=== PATIENT | female | born 1985 | race Caucasian/White ===

== ENCOUNTER 2016-09-05 19:28 | Emergency (ER) | payer OTHER ==
[~2016-09-05] VITALS: Ht 157.5 cm; Wt 85.5 kg
[2016-09-05] MEDS ORDERED: SODIUM CHLORIDE 0.9% 1,000ML IVBOLUS ONE (20:00)
[2016-09-05] MEDS ORDERED: ONDANSETRON 2MG/ML, 2ML IVPush ONE ×2 (20:00→21:00)
[2016-09-05] MEDS ORDERED: MAALOX/HYOSCYAMINE/LIDOCAINE 45 ML BOTTLE PO ONE (20:00)
[2016-09-05] MEDS ORDERED: SODIUM CHLORIDE FLUSH 10ML SYR IVF ONE (20:00)
[2016-09-05] MEDS ORDERED: ONDANSETRON 2MG/ML, 2ML ONE ×2 (20:18→21:18)
[2016-09-05] MEDS ORDERED: MAALOX/HYOSCYAMINE/LIDOCAINE 45 ML BOTTLE ONE (20:18)
[2016-09-05] MEDS ORDERED: SUMA25TA3 PO (20:30)
[2016-09-05] MEDS ORDERED: TOPI25CA5 PO (20:30)
[2016-09-05 20:40] LABS: ASPARTATE AMINO TRANSFERASE 18 U/L (15-37); BLOOD UREA NITROGEN 8 mg/dL (7-18)
[2016-09-05 22:02] VITALS: BP 130/74
== END 2016-09-05 22:04 | disposition home or self-care (01) ==
LOC: ED 21:08
DX: K52.9 Noninfective gastroenteritis and colitis, unspecified (principal)
CPT/HCPCS: 36415; 80053; 81001; 83690; 84703; 85025; 96361; 96374; 96376; 99284; J2405; J7030

== ENCOUNTER 2017-05-28 19:59 | Inpatient (IN) | payer OTHER ==
[~2017-05-28] VITALS: Ht 157.5 cm; Wt 76.9 kg
[~2017-05-28 19:59] MED LIST: SUMA25TA3 PO; TOPI25CA5 PO
[2017-05-28] MEDS ORDERED: SODIUM CHLORIDE 0.9% 1,000ML IVBOLUS ONE ×2 (20:30→21:00)
[2017-05-28] MEDS ORDERED: LORazepam 2 MG/ML, 1ML IVPush ONE (20:30)
[2017-05-28] MEDS ORDERED: SODIUM CHLORIDE FLUSH 10ML SYR IVF ONE ×2 (20:30→21:00)
[2017-05-28] MEDS ORDERED: LORazepam 2 MG/ML, 1ML ONE (20:42)
[2017-05-28] MEDS ORDERED: ONDANSETRON 2MG/ML, 2ML IVP ONE (21:00)
[2017-05-28] MEDS ORDERED: AZITHROMYCIN 500 MG in SODIUM CHLORIDE 0.9% 250 ML IVPB ONE (21:00)
[2017-05-28] MEDS ORDERED: CEFTRIAXONE PMX 1GM/50ML 50 ML IVPB ONE (21:00)
[2017-05-28] MEDS ORDERED: METHYL FOLATE (21:04)
[2017-05-28] MEDS ORDERED: METF500T4 PO (21:04)
[2017-05-28] MEDS ORDERED: MULTIVITAM (21:04)
[2017-05-28 21:27] LABS: RAPID INFLUENZA A Negative (Negative); RAPID INFLUENZA B Negative (Negative)
[2017-05-28 21:28] LABS: MEAN CORPUSCULAR HEMOGLOBIN 30.3 pg (27.0-34.8); MEAN CORPUSCULAR VOLUME 91.8 fL (80-100); MEAN PLATELET VOLUME 9.4 fL (7.4-10.4); PLATELET COUNT 182 x10^3/uL (130-400); RED BLOOD COUNT 5.07 x10^6/uL (3.82-5.3); RED CELL DISTRIBUTION WIDTH 12.7 % (9.6-15.2)
[2017-05-28 21:41] LABS: ALBUMIN 3.8 g/dL (3.4-5.0); ANION GAP 11 mmol/L (5-15); CALCIUM 8.7 mg/dL (8.5-10.1); CHLORIDE 104 mmol/L (98-107); CREATININE 0.96 mg/dL (0.55-1.02)
[2017-05-28 21:44] LABS: BASOPHILS # (AUTO) 0.02 x10^3/uL (0-0.1); BASOPHILS % (AUTO) 0 % (0-1); EOSINOPHILS # (AUTO) 0.01 x10^3/uL (0-0.4); EOSINOPHILS % (AUTO) 0 % (1-7); LYMPHOCYTES # (AUTO) 1.18 x10^3/uL (1-3.4); LYMPHOCYTES % (AUTO) 6 % (22-44); MD SCAN; MONOCYTES # (AUTO) 1.04 x10^3/uL (0.2-0.8); MONOCYTES % (AUTO) 6 % (2-9); NEUTROPHILS # (AUTO) 16.53 x10^3/uL (1.8-6.8); NEUTROPHILS % (AUTO) 88 % (42-75)
[2017-05-28 21:46] LABS: T4 (THYROXINE) 7.7 mcg/dL (4.8-13.9); TROPONIN I < 0.015 ng/mL (0.000-0.045)
[2017-05-28 21:51] LABS: THYROID STIMULATING HORMONE 0.883 mIU/L (0.358-3.740)
[2017-05-28] MEDS ORDERED: CEFTRIAXONE PMX 1GM/50ML 50 ML ONE (22:03)
[2017-05-28] MEDS ORDERED: MORPHINE SULFATE 4 MG/ML, 1ML ONE (22:04)
[2017-05-28] MEDS ORDERED: ONDANSETRON 2MG/ML, 2ML ONE (22:04)
[2017-05-28] MEDS: MORPHINE SULFATE 4 MG/ML, 1ML IVPush PRN ×3 (22:12→23:51)
[2017-05-29 00:09] VITALS: BP 105/68
[2017-05-29] MEDS ORDERED: L.AC1CAP6 PO (00:28)
[2017-05-29] MEDS ORDERED: ALPR0.5T PO (00:30)
[2017-05-29] MEDS ORDERED: DOCUSATE 100 MG CAPSULE PO PRN (00:30)
[2017-05-29] MEDS ORDERED: ONDANSETRON ODT 4 MG PO PRN (00:30)
[2017-05-29] MEDS: SODIUM CHLORIDE 0.9% 1,000 ML IV SCH ×3 (00:55→21:05)
[2017-05-29 04:03] LABS: TROPONIN I < 0.015 ng/mL (0.000-0.045)
[2017-05-29 07:45] VITALS: BP 98/66
[2017-05-29] MEDS: ACETAMINOPHEN 325 MG TABLET PO PRN ×2 (08:33→12:49)
[2017-05-29] MEDS: metFORMIN 500 MG TABLET PO SCH ×2 (08:33→21:04)
[2017-05-29] MEDS: GUAIFENESIN/DM 200-20MG, 10ML UDC PO PRN ×3 (08:39→21:46)
[2017-05-29 10:43] LABS: TROPONIN I < 0.015 ng/mL (0.000-0.045)
[2017-05-29 10:51] VITALS: BP 94/67
[2017-05-29 12:20] VITALS: BP 94/68
[2017-05-29 14:33] VITALS: BP 92/67
[2017-05-29 19:17] LABS: CLOSTRIDIUM DIFFICILE ANTIGEN NEGATIVE; CLOSTRIDIUM DIFFICILE TOXIN NEGATIVE (Negative)
[2017-05-29 19:48] VITALS: BP 97/64
[2017-05-29] MEDS ORDERED: AZITHROMYCIN 500 MG in SODIUM CHLORIDE 0.9% 250 ML IV SCH (21:30)
[2017-05-29] MEDS ORDERED: CEFTRIAXONE PMX 1GM/50ML 50 ML IV SCH (21:30)
[2017-05-30] MEDS: GUAIFENESIN/DM 200-20MG, 10ML UDC PO PRN ×2 (00:32→09:04)
[2017-05-30 02:00] VITALS: BP 101/69
[2017-05-30] MEDS: SODIUM CHLORIDE 0.9% 1,000 ML IV SCH (05:21)
[2017-05-30 05:44] LABS: BASOPHILS # (AUTO) 0.03 x10^3/uL (0-0.1); BASOPHILS % (AUTO) 0 % (0-1); EOSINOPHILS # (AUTO) 0.14 x10^3/uL (0-0.4); EOSINOPHILS % (AUTO) 2 % (1-7); LYMPHOCYTES # (AUTO) 2.31 x10^3/uL (1-3.4); LYMPHOCYTES % (AUTO) 38 % (22-44); MD NO; MEAN CORPUSCULAR HEMOGLOBIN 30.7 pg (27.0-34.8); MEAN CORPUSCULAR HGB CONC 33.2 g/dL (32.4-35.8); MEAN CORPUSCULAR VOLUME 92.5 fL (80-100); MEAN PLATELET VOLUME 9.4 fL (7.4-10.4); MONOCYTES # (AUTO) 0.43 x10^3/uL (0.2-0.8); MONOCYTES % (AUTO) 7 % (2-9); NEUTROPHILS # (AUTO) 3.27 x10^3/uL (1.8-6.8); NEUTROPHILS % (AUTO) 53 % (42-75); PLATELET COUNT 163 x10^3/uL (130-400); RED BLOOD COUNT 4.03 x10^6/uL (3.82-5.3); RED CELL DISTRIBUTION WIDTH 13.2 % (9.6-15.2)
[2017-05-30 06:29] VITALS: BP 111/77
[2017-05-30] MEDS: metFORMIN 500 MG TABLET PO SCH (08:54)
[2017-05-30 09:00] VITALS: BP 119/77
[2017-05-30] MEDS: ACETAMINOPHEN 325 MG TABLET PO PRN (09:04)
[2017-05-30] MEDS ORDERED: CIPR750T PO (11:08)
[2017-05-30] MEDS ORDERED: LEVOFLOXACIN 750 MG TABLET PO ONE (12:30)
[2017-05-30] MEDS ORDERED: LEVO750T26 PO (12:42)
== END 2017-05-30 12:52 | disposition home or self-care (01) | DRG 195 ==
LOC: ED 23:13 → EDIP 23:15 → 4EST 23:45 → DCLOUNGE 05-30 12:38
PROVIDERS: ADMIT Internal Medicine; ATTEND Family Medicine
DX: J15.9 Unspecified bacterial pneumonia (principal); E11.9 Type 2 diabetes mellitus without complications; F41.1 Generalized anxiety disorder; Z82.3 Family history of stroke; E28.2 Polycystic ovarian syndrome; F41.0 Panic disorder [episodic paroxysmal anxiety]; Z82.49 Family history of ischemic heart disease and other diseases of the circulatory system; Z90.49 Acquired absence of other specified parts of digestive tract; Z88.8 Allergy status to other drugs, medicaments and biological substances
CPT/HCPCS: 36415; 71046; 80048; 82040; 83605; 83735; 84436; 84443; 84484; 84703; 85025; 87040; 87324; 87400; 93005; 96361; 96374; 96375; J0456; J0696; J2405; Q0162; J2060; J7030; J7050

== ENCOUNTER 2018-10-16 18:33 | Outpatient (CLI) | payer OTHER ==
[~2018-10-16] VITALS: Ht 157.5 cm; Wt 80.5 kg
[~2018-10-16 18:33] MED LIST changes: +ALPR0.5T PO; +CIPR750T PO; +L.AC1CAP6 PO; +LEVO750T26 PO; +METF500T17 PO; +METHYL FOLATE; +MULTIVITAM
[2018-10-16 19:28] LABS: MICROSCOPIC NOT IND
== END 2018-10-16 21:40 | disposition home or self-care (01) ==
LOC: LDOP 18:33
PROVIDERS: ATTEND Obstetrics & Gynecology
DX: O36.8120 Decreased fetal movements, second trimester, not applicable or unspecified (principal); O09.512 Supervision of elderly primigravida, second trimester; Z3A.27 27 weeks gestation of pregnancy
CPT/HCPCS: 59025; 76815; 81003; 87086; 99211; G0463

== ENCOUNTER 2018-10-22 16:25 | Outpatient (CLI) | payer OTHER ==
[~2018-10-22] VITALS: Ht 157.5 cm; Wt 80.5 kg
[2018-10-22 16:41] VITALS: BP 131/75
[2018-10-22 17:41] LABS: MICROSCOPIC NOT IND
[2018-10-22 17:59] LABS: BASOPHILS % (AUTO) 1 % (0-1); EOSINOPHILS # (AUTO) 0.18 x10^3/uL (0-0.4); EOSINOPHILS % (AUTO) 2 % (1-7); LYMPHOCYTES # (AUTO) 2.42 x10^3/uL (1-3.4); LYMPHOCYTES % (AUTO) 21 % (22-44); MD NO; MEAN CORPUSCULAR HEMOGLOBIN 33.1 pg (27.0-34.8); MEAN CORPUSCULAR HGB CONC 33.5 g/dL (32.4-35.8); MEAN CORPUSCULAR VOLUME 98.9 fL (80-100); MEAN PLATELET VOLUME 8.7 fL (7.4-10.4); MONOCYTES # (AUTO) 0.62 x10^3/uL (0.2-0.8); MONOCYTES % (AUTO) 5 % (2-9); NEUTROPHILS # (AUTO) 8.35 x10^3/uL (1.8-6.8); NEUTROPHILS % (AUTO) 72 % (42-75); PLATELET COUNT 185 x10^3/uL (130-400); RED CELL DISTRIBUTION WIDTH 13.6 % (9.6-15.2)
[2018-10-22 18:11] LABS: ALBUMIN 2.7 g/dL (3.4-5.0); ANION GAP 7 mmol/L (5-15); CALCIUM 9.1 mg/dL (8.5-10.1); CHLORIDE 109 mmol/L (98-107)
[2018-10-22 18:15] LABS: ALANINE AMINOTRANSFERASE 16 U/L (12-78); ALKALINE PHOSPHATASE 72 U/L (45-117); BILIRUBIN,TOTAL 0.5 mg/dL (0.2-1.0); CREATININE 0.55 mg/dL (0.55-1.02); TOTAL PROTEIN 6.3 g/dL (6.4-8.2)
[2018-10-22] MEDS ORDERED: ACETAMINOPHEN 325 MG TABLET ONE (19:08)
[2018-10-22] MEDS ORDERED: ACETAMINOPHEN 325 MG TABLET PO ONE (19:30)
== END 2018-10-22 20:15 | disposition home or self-care (01) ==
LOC: LDOP 16:25
PROVIDERS: ATTEND Obstetrics & Gynecology
DX: O09.523 Supervision of elderly multigravida, third trimester (principal); O26.893 Other specified pregnancy related conditions, third trimester; R10.9 Unspecified abdominal pain; Z91.040 Latex allergy status; Z91.02 Food additives allergy status
CPT/HCPCS: 36415; 59025; 80053; 81003; 85025; 99211; G0463